=== PATIENT | female | born 1995 | race Caucasian/White ===

== ENCOUNTER 2017-07-19 22:12 | Emergency (ER) | payer SELFPAY ==
[~2017-07-19] VITALS: Ht 152.4 cm; Wt 88.9 kg
[2017-07-19 22:22] VITALS: BP 149/82
--- NOTE | 2017-07-19 23:25 | NUR ---
PT TAKEN TO BED 11
--- NOTE | 2017-07-19 23:30 | NUR ---
22/F CAME IN W C/O 05/13 RUQ PAIN, CONSTANT, NONRADIATING X 2 DAYS. ABD SOFT AND ROUND,+TENDERNESS TO RUQ. BS ACTIVE X 4. REPORTS FREQUENT BELCHING, DENIES N/V/D, DENIES FEVER/CHILLS, SOB/COUGH, CP. REPORTS NORMAL BM. DENIES PMH/RX. TOOK IBUPROFEN AT 2100 AND TYLENOL 2330
--- NOTE | 2017-07-19 23:43 | NUR ---
Dr. Armenta evaluating patient at bedside.
[2017-07-20] MEDS ORDERED: KETOROLAC 60 MG/2 ML VIAL IM ONE (00:15)
[2017-07-20] MEDS ORDERED: ONDANSETRON 4 MG ODT PO ONE (00:15)
[2017-07-20 00:48] LABS: BILIRUBIN,URINE NEGATIVE (NEGATIVE); BLOOD, URINE TRACE-I (NEGATIVE); COLOR,URINE YELLOW (YELLOW); LEUKOCYTE ESTERASE ,URINE NEGATIVE (NEGATIVE); NITRITE, URINE NEGATIVE (NEGATIVE); PH,URINE 7.5 (5.0-9.0); UGLUCOSE NEGATIVE (NEGATIVE)
[2017-07-20 00:52] LABS: HEMATOCRIT 35.8 % (36-48); HEMOGLOBIN 11.8 g/dL (12.0-16.0); MEAN CORPUSCULAR HEMOGLOBIN 26 pg (27-31); MEAN CORPUSCULAR HGB CONC 33 g/dL (33-37); MEAN CORPUSCULAR VOLUME 78 fL (80-94); PLATELET COUNT (AUTO) 348 K/uL (140-450); RED BLOOD CELL COUNT(AUTO) 4.57 MIL/uL (4.20-5.40); RED CELL DISTRIBUTION WIDTH 14.8 % (11.6-13.7); WHITE BLOOD COUNT (AUTO) 10.1 K/uL (4.5-11.0)
[2017-07-20 01:02] LABS: LYMPHOCYTES % (MANUAL) 37 % (20-46); MONOCYTES % (MANUAL) 7 % (5-12)
[2017-07-20 01:03] LABS: APPEARANCE,URINE SLIGHTLY HAZY (CLEAR)
[2017-07-20 01:05] LABS: RBC,URINE 3-10 (FEW) /HPF (0-5); WBC,URINE 0-5 (RARE) /HPF (0-5)
[2017-07-20 01:15] LABS: CARBON DIOXIDE 29.2 mmol/L (21-32); CREATININE 0.7 mg/dL (0.6-1.3); POTASSIUM 4.2 mmol/L (3.5-5.1)
[2017-07-20 01:37] LABS: ALBUMIN 3.8 g/dL (3.4-5.0); TOTAL BILIRUBIN 0.2 mg/dL (0.0-1.0)
--- NOTE | 2017-07-20 01:47 | NUR ---
Patient discharged with v/s stable. Written and verbal after care instructions given and explained. Patient alert, oriented and verbalized understanding of instructions. Ambulatory with steady gait. All questions addressed prior to discharge. ID band removed. Patient advised to follow up with PMD. Rx of MOTRIN 600 MG, PEPSID 20 MG given. Patient educated on indication of medication including possible reaction and side effects. Opportunity to ask questions provided and answered.
[2017-07-20 01:48] VITALS: BP 139/89
== END 2017-07-20 01:47 | disposition home or self-care (01) ==
LOC: MED 22:12
DX: M94.0 Chondrocostal junction syndrome [Tietze] (principal); R03.0 Elevated blood-pressure reading, without diagnosis of hypertension
CPT/HCPCS: 36415; 71010; 80053; 81001; 81025; 84484; 85025; 93005; 96372; 99285; J1885; Q0092; S0119

== ENCOUNTER 2023-08-01 05:34 | Day surgery (SDC) | payer OTHER ==
[~2023-08-01] VITALS: Ht 152.4 cm; Wt 99.8 kg
[2023-08-01] MEDS ORDERED: MIDAZOLAM 2 MG/2 ML VIAL ONE (07:25)
[2023-08-01] MEDS ORDERED: fentaNYL citrate 0.05 MG/ML VIAL ONE (07:26)
[2023-08-01] MEDS ORDERED: DEXAMETHASONE 4 MG/ML VIAL ONE ×2 (07:32)
[2023-08-01] MEDS ORDERED: KETOROLAC 30 MG/ML VIAL IVP ONE (08:20)
[2023-08-01] MEDS ORDERED: ONDANSETRON 4 MG/2 ML VIAL IVP PRN (08:30)
[2023-08-01] MEDS ORDERED: HYDROmorphone PFS 2 MG/ML SYR ONE (09:01)
[2023-08-01] MEDS: HYDROmorphone 1 MG/ML AMP IVP PRN ×2 (09:02→09:12)
== END 2023-08-01 10:36 | disposition home or self-care (01) ==
LOC: MDS 05:34 → MMU 06:04 → MDS 10:36
PROVIDERS: ATTEND Obstetrics & Gynecology
DX: N92.1 Excessive and frequent menstruation with irregular cycle (principal); N84.1 Polyp of cervix uteri; K21.9 Gastro-esophageal reflux disease without esophagitis; E66.01 Morbid (severe) obesity due to excess calories; N76.0 Acute vaginitis; B96.89 Other specified bacterial agents as the cause of diseases classified elsewhere; Z79.899 Other long term (current) drug therapy; Z68.42 Body mass index [BMI] 45.0-49.9, adult
CPT/HCPCS: 36415; 58558; 84702; 86886; 86900; 86901; J1100; J1170; J2250; J3010; J7030; J7120